=== PATIENT | male | born 1965 | race Caucasian/White ===

== ENCOUNTER → 2017-11-13 | Outpatient (CLI) | payer BC | END | disposition home or self-care (01) | LOC: KCIC 15:31 | DX: L97.529 Non-pressure chronic ulcer of other part of left foot with unspecified severity (principal); I70.90 Unspecified atherosclerosis; M15.1 Heberden's nodes (with arthropathy); M77.32 Calcaneal spur, left foot; M79.89 Other specified soft tissue disorders | CPT/HCPCS: 73630 ==

== ENCOUNTER → 2020-08-07 | Outpatient (CLI) | payer BC ==
[~2020-08-07] MED LIST: GADOTERATE 7.5 MMOL/15ML VIAL. IVP ONE; HYDR12.575 PO; INSU100I13 SQ; INSU100V6 SQ; LISI-334 PO
--- NOTE | 2020-08-08 14:09 | KCIC ---
EXAM: MRI left foot, attention to forefoot-mid foot with and without IV contrast DATE: 08/07/2020 2:45 PM CLINICAL HISTORY: CHRONIC LEFT FOOT [id number]/[id number] at the plantar portion of the forefoot. COMPARISON: Left foot radiograph 11/13/2017 TECHNIQUE: Multiplanar, multisequence MR imaging of the forefoot-mid foot was performed before and after the administration of IV contrast. FINDINGS: Soft tissue ulceration is seen at the plantar aspect of the first metatarsal head. Soft tissue edema is seen at the plantar aspect of the foot as well, near the TMT joints. T1 marrow signal is grossly preserved. No fracture or osteonecrosis. Visualized flexor and extensor tendons are intact. Moderate increased signal and thickening of the flexor hallucis longus distally. No tenosynovitis. Multilevel degenerative changes are seen, most prominent at the midfoot including the TMT and calcaneonavicular joints. Indication is seen through the proximal phalanx of the first metatarsal as well as the second, third and fourth MTP joints. Deformity of the fourth metatarsal head without marrow signal replacement likely from degenerative change or prior osteomyelitis. No loculated fluid collection. No abnormal enhancing mass is seen. IMPRESSION: 1. Soft tissue ulceration at the plantar aspect of the first metatarsal head and midfoot, without MRI evidence for acute osteomyelitis 2. Deformity of the fourth metatarsal head likely from prior osteomyelitis, no definite signal characteristics suggest acute osteomyelitis on today's examination. 3. Moderate tendinosis of the flexor hallucis longus at the level of the forefoot. Electronically signed by: Jacobo Devine MD (08/08/2020 2:06 PM) GOLD
== END ==
LOC: KCIC MRI 14:26
PROVIDERS: ATTEND Surgery
DX: L97.529 Non-pressure chronic ulcer of other part of left foot with unspecified severity (principal); E11.621 Type 2 diabetes mellitus with foot ulcer; M19.072 Primary osteoarthritis, left ankle and foot; M21.6X2 Other acquired deformities of left foot; M77.8 Other enthesopathies, not elsewhere classified
CPT/HCPCS: 73720; 82565; A9575

== ENCOUNTER → 2021-07-27 | Outpatient (CLI) | payer BC ==
[~2021-07-27] MED LIST changes: -LISI-334 PO; +LISI20TA18 PO
--- NOTE | 2021-07-27 17:32 | KCIC ---
EXAMINATION: MRI LEFT LOWER EXTREMITY W/WO INDICATIONS: Diabetic foot with. Possible exposed tendon.. TECHNIQUE: Multiplanar multisequence MRI of the left forefoot was obtained before and after administ ration of 24 mL clear scan contrast. COMPARISON: Left foot radiograph 11/13/2017 and MRI left foot 08/07/2020. FINDINGS: There is confluent low T1 signal with marrow edema and enhancement as well as destructive changes of the head of the second metatarsal, consistent with acute osteomyelitis. Edema and enhancement extend through the shaft. Marrow signal elsewhere is normal. 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 There is a plantar foot wound directly overlying the second metatarsal head and extending to the bone . There is edema or phlegmon surrounding the metatarsal head but no definite abscess. Diffuse muscula r atrophy and edema. There is disruption of the flexor tendon to the second metatarsal distally at th e level of the wound. Remaining flexor and extensor tendons are intact. Diffuse subcutaneous edema. IMPRESSION: Acute osteomyelitis of the second metatarsal head with osseous destruction and surroundin g phlegmon. This is directly deep to a plantar foot wound, which extends to the bone and causes disru ption of the flexor tendon to the second metatarsal. No drainable abscess. Electronically signed by: Annita Asher MD (07/27/2021 5:30 PM) [id number]
== END ==
LOC: KCIC MRI 09:08
PROVIDERS: ATTEND Podiatrist Foot & Ankle Surgery
DX: S91.302A Unspecified open wound, left foot, initial encounter (principal); M86.172 Other acute osteomyelitis, left ankle and foot; M62.572 Muscle wasting and atrophy, not elsewhere classified, left ankle and foot; R60.0 Localized edema; Z98.890 Other specified postprocedural states
CPT/HCPCS: 73720; 82565; A9575